=== PATIENT | male | born 1965 | race Two or more races ===

== ENCOUNTER → 2021-09-02 | Outpatient (CLI) | payer OTHER ==
--- NOTE | 2021-09-02 13:12 | DIREP ---
PROCEDURE:CT ABDOMEN/PELVIS W/O CONTRAST COMPARISON:None. INDICATIONS:R10.31 RLQ PAIN TECHNIQUE:Axial images were created through the abdomen and pelvis without intravenous contrast material. No oral contrast was administered. Sagittal and coronal reconstructions were performed from source images. FINDINGS: LUNG BASES:Normal. No visible pulmonary or pleural disease. LIVER:Normal. No significant liver lesions are identified. BILIARY:Normal. No visible dilatation or calcification. PANCREAS:Normal. No lesion, fluid collection, ductal dilatation, or atrophy. SPLEEN:Normal. No enlargement or focal lesion. ADRENALS:Normal. No mass or enlargement. URINARY TRACT:5 mm right and 8 mm left nonobstructing renal calculi. No hydronephrosis of either kidney. No ureteral calculi. Urinary bladder within normal limits. AORTA/VASCULAR:Limited without IV contrast. No aortic aneurysmal dilatation. RETROPERITONEUM:Normal. No mass or adenopathy. BOWEL/MESENTERY:No free air. Lack of oral contrast limits evaluation of the bowel structures. No small bowel dilatation seen to suggest obstruction. Appendix within normal limits by size. However, there is high density within the appendiceal lumen. No surrounding inflammatory changes noted. ABDOMINAL WALL:Normal. No mass or hernia. PELVIC ORGANS:Pelvic organs appropriate for patient's age. BONES:Degenerative change without evidence of acute osseus abnormality. OTHER:Negative. CONCLUSION: 1. Bilateral nonobstructing renal calculi. No hydronephrosis of either kidney. 2. No bowel obstruction. Appendix appears within normal limits. No right lower quadrant inflammatory change. 3. Additional findings as described. Dictated by: Earl Campbell MD on 09/02/2021 at 01:01 PM
== END | disposition home or self-care (01) ==
LOC: RAD 10:56
PROVIDERS: ATTEND Physician Assistant
DX: N20.0 Calculus of kidney (principal); R10.31 Right lower quadrant pain; M47.819 Spondylosis without myelopathy or radiculopathy, site unspecified
CPT/HCPCS: 74176